=== PATIENT | male | born 1960 | race Caucasian/White ===

== ENCOUNTER → 2025-01-05 | Outpatient (CLI) | payer OTHER, SELFPAY ==
--- NOTE | 2025-01-05 09:05 | LES_PTH ---
PATIENT: LEIGH ANN LEE LOC: [facility] U#:[id number] AGE/SX: 64/M ROOM: RE01/05/[address]: Dr. Peter Villar MD : 1960 BED: DIS: 01/05/2025 SPEC #: [id number] RECD: 01/07/25 08:31 STATUS: EVELYNE NORMAN #: [id number] JL: 01/05/25 09:[address]: Peter Villar DEPT: SURGICAL PATHOLOGY RECD BY: Clint Steven Tissues: A - Tongue, NOS Procedures: Immunohistochemical Stains Special Stain Group I Surgery Specimen Level IV GMS Stain (control) HEADER OPERATION: Permanent pathology PRE-OP DIAGNOSIS: Tongue lesion TISSUE SUBMITTED: A- Left tongue lesion MICROSCOPIC DIAGNOSIS A. Left tongue, biopsy: * Squamous mucosa with ulceration and reactive changes. * PASD stain for fungal organisms is pending and will be reported in an addendum. * IHC for CMV and HSV are pending and will be reported in an addendum. MICROSCOPIC DESCRIPTION Slides are reviewed. GROSS DESCRIPTION A. Received in formalin in a container labeled with the patient's name, date of , and tongue lesion is an unoriented and irregular fragment of soft tissue measuring 0.4 x 0.3 x 0.3 cm. The possible mucosal surface is white-vasquez and grossly unremarkable. The opposing probable margin is inked green and it is submitted entirely in A1. [facility] 01/23/2025 CPT:[id number] ADDENDUM ADDENDUM ADDENDUM ADDENDUM ADDENDUM ADDENDUM ADDENDUM ADDENDUM ADDENDUM ADDENDUM ADDENDUM ADDENDUM ADDENDUM ADDENDUM ADDENDUM ADDENDUM ADDENDUM 01/28/2025 12:25 ADDENDUM 01/28/2025 12:25 ADDENDUM 01/28/2025 12:25 ADDENDUM 01/28/2025 12:25 ADDENDUM 01/28/2025 12:25 This addendum is to report the results of the PASD special stain and the IHC for CMV and HSV (performed at [facility]): The PASD stain is negative for fungal organisms. IHC for pancytokeratin is negative for architectural evidence of carcinoma. IHC is negative for HSV (herpes simplex virus types I&II) (performed at [facility]). IHC is negative for CMV (cytomegalovirus) (performed at [facility]). All matched controls reacted appropriately. These tests were developed and their performance characteristics determined by [facility]. They may not have been cleared or approved by the [place] Food and Drug Administration. The FDA has determined that such clearance or approval is not necessary.? The above immunohistochemical/dualISH?markers are ordered and reviewed by the Pathologist.
== END | disposition home or self-care (01) ==
LOC: LABSPEC 11:57
PROVIDERS: Referring Provider Otolaryngology Otolaryngology/Facial Plastic Surgery; Visit Provider Otolaryngology Otolaryngology/Facial Plastic Surgery
DX: K14.0 Glossitis (principal)
CPT/HCPCS: 88305; 88312; 88342